=== PATIENT | female | born 1945 | race Caucasian/White ===

== ENCOUNTER → 2021-11-08 10:38 | Outpatient (CLI) | payer MEDICARE, OTHER, SELFPAY ==
[2021-11-08 13:32] LABS: Add Manual Diff / Slide Review NO; Basophils Absolute Auto 0 /uL (0-100); Basophils Percent Auto 0.7 % (0-2); Eosinophils Absolute Auto 100 /uL (0-450); Eosinophils Percent Auto 1.8 % (2-4); Hematocrit 36.1 % (36-46); Hemoglobin 12.6 g/dL (12.0-16.0); Lymphocytes Absolute Auto 1600 /uL (1100-4500); Lymphocytes Percent Auto 37.8 % (25-40); Mean Corpuscular Hemoglobin 32.3 PG (26-34); Mean Corpuscular Volume 92.5 fL (80-100); Monocytes Absolute Auto 400 /uL (0-900); Monocytes Percent Auto 9.5 % (3-14); Neutrophils Absolute Auto 2100 /uL (1500-7000); Neutrophils Percent Auto 50.2 % (50-75); Platelet Count 202 X10^3/uL (150-400); Red Cell Distribution Width 13.2 % (11.6-14.8); White Blood Cell Count 4.2 X10^3/uL (4.5-11.0)
[2021-11-08 13:40] LABS: Appearance Urine UA SL CLOUDY; Bilirubin Urine UA NEGATIVE (NEGATIVE); Color Urine UA YELLOW; Glucose Urine UA NEGATIVE (Negative); Ketones Urine UA NEGATIVE (NEGATIVE); Leukocyte Esterase Urine UA NEGATIVE (NEGATIVE); Nitrite Urine UA NEGATIVE (Negative); Occult Blood Urine UA NEGATIVE (Negative); Protein Urine UA NEGATIVE (Negative); Urobilinogen Urine UA 0.2 E.U./dL (0.2)
[2021-11-08 13:59] LABS: RBC Urine None Seen (0-5/HPF); WBC Urine 0-1/HPF (0-5/HPF)
[2021-11-08 14:00] LABS: Amorphous Sediment Urine 3+; Bacteria Urine Few (2-10); Culture Indicated Urine Specimen Cultured; Squamous Epithelial Cell Urine None Seen (0-5/HPF)
[2021-11-08 14:11] LABS: Erythrocyte Sedimentation Rate 12 MM/HR (0-20)
[2021-11-08 14:39] LABS: Alanine Aminotransferase 22 IU/L (<35); Albumin 4.4 g/dL (3.5-5.0); Albumin Globulin Ratio 1.5 (1.0-2.8); Alkaline Phosphatase 61 U/L (38-126); Aspartate Aminotransferase 29 IU/L (14-36); BUN Creatinine Ratio 26.9 (6-22); Bilirubin Total 0.4 mg/dL (0.2-1.3); Blood Urea Nitrogen 18 mg/dL (7-17); C-Reactive Protein Quant < 0.5 mg/dL (<1.0); Calcium 9.4 mg/dL (8.4-10.2); Carbon Dioxide 33 mmol/L (22-32); Chloride 104 mmol/L (98-107); Estimated Glomerular Filt Rate > 60 mL/min (>60); Glucose 99 mg/dL (80-110); HEMOLYSIS < 15 (0-50); Potassium 4.1 mmol/L (3.4-5.1); Sodium 138 mmol/L (137-145); Total Protein 7.4 g/dL (6.3-8.2)
[2021-11-08 15:23] LABS: Vitamin B12 942 pg/mL (239-931)
[2021-11-09 08:20] LABS: Complement C3 110 mg/dL (82-167)
[2021-11-09 13:21] LABS: DNA (DS) Antibody <1 IU/mL (0-9)
[2021-11-09 16:35] LABS: Deamidated Gliadin Ab IgA 2 units (0-19); Deamidated Gliadin Ab IgG 2 units (0-19); Immunoglobulin A,Qn 104 mg/dL (64-422); t-Transglutaminase IgA <2 U/mL (0-3)
[2021-11-12 17:00] LABS: Immunoglobulin A, Serum 108 mg/dL (64-422); Immunoglobulin G,Serum 909 mg/dL (586-1602); Immunoglobulin M, Serum 77 mg/dL (26-217)
[2021-11-13 12:07] LABS: Methylmalonic Acid,Serum 83 nmol/L (0-378)
[2021-11-15 15:02] LABS: Alpha-Tocopherol 13.4 mg/L (9.0-29.0); Gamma-Tocopherol 0.1 mg/L (0.5-4.9)
== END ==
PROVIDERS: PCP Family Medicine; Referring Provider Internal Medicine; Visit Provider Internal Medicine
DX: M35.00 Sjogren syndrome, unspecified (principal); I73.00 Raynaud's syndrome without gangrene; G62.9 Polyneuropathy, unspecified
CPT/HCPCS: 36415; 80053; 81001; 82607; 82784; 83516; 83921; 84155; 84446; 85025; 85651; 86140; 86160; 86225; 86334; 87086

== ENCOUNTER → 2023-03-28 10:33 | Outpatient (CLI) | payer MEDICARE, OTHER, SELFPAY | LOC: RESP 10:34 | PROVIDERS: PCP Family Medicine; Referring Provider Family Medicine; Visit Provider Family Medicine | DX: R06.02 Shortness of breath (principal); J98.8 Other specified respiratory disorders; R42 Dizziness and giddiness | CPT/HCPCS: 94060; 94726; 94729 ==

== ENCOUNTER → 2025-03-01 11:58 | Outpatient (CLI) | payer MEDICARE, OTHER, SELFPAY ==
[2025-03-01 12:21] LABS: Add Manual Diff / Slide Review NO; Hematocrit 38.5 % (36-46); Hemoglobin 13.1 g/dL (12.0-16.0); Lymphocytes Absolute Auto 1600 /uL (1100-4500); Mean Corpuscular HGB Conc 34.2 % (30-36); Mean Corpuscular Hemoglobin 31.8 PG (26-34); Mean Corpuscular Volume 92.9 fL (80-100); Platelet Count 212 X10^3/uL (150-400)
[2025-03-01 13:08] LABS: Alanine Aminotransferase 23 IU/L (<35); Albumin 4.7 g/dL (3.5-5.0); Albumin Globulin Ratio 1.8 (1.0-2.8); Alkaline Phosphatase 63 U/L (38-126); Blood Urea Nitrogen 19 mg/dL (7-17); Calcium 9.7 mg/dL (8.4-10.2); Carbon Dioxide 30 mmol/L (22-32); Chloride 102 mmol/L (98-107); Estimated Glomerular Filt Rate > 60 mL/min (>60); Globulin 2.6 g/dL (1.7-4.1); Glucose 94 mg/dL (70-99); HEMOLYSIS < 15 (0-50); Potassium 4.2 mmol/L (3.4-5.1); Sodium 139 mmol/L (137-145); Total Protein 7.3 g/dL (6.3-8.2)
[2025-03-03 13:36] LABS: Albumin 4.0 g/dL (2.9-4.4); Gamma Globulin 1.0 g/dL (0.4-1.8)
== END ==
PROVIDERS: PCP Family Medicine; Referring Provider Nurse Practitioner Family; Visit Provider Nurse Practitioner Family
DX: M35.00 Sjogren syndrome, unspecified (principal)
CPT/HCPCS: 36415; 80053; 84155; 84165; 85025; 86038